=== PATIENT | male | born 1995 | race Caucasian/White ===

== ENCOUNTER 2022-05-24 14:25 | Emergency (ER) | payer MEDICAID ==
[~2022-05-24] VITALS: Ht 177.8 cm; Wt 95.5 kg
[2022-05-24 15:02] LABS: BASOPHILS % (AUTO) 0.3 % (0-1); EOSINOPHILS % (AUTO) 0.2 % (0-6); HEMATOCRIT 43.9 % (42.0-52.0); LYMPHOCYTES # (AUTO) 2.4 X10'3 (1.1-4.8); LYMPHOCYTES % (AUTO) 18.8 % (21-51); MEAN CORPUSCULAR HEMOGLOBIN 27.8 PG (27.0-31.0); MEAN CORPUSCULAR HGB CONC 34.2 g/dL (33.0-36.5); MEAN CORPUSCULAR VOLUME 81.1 FL (78-98); MEAN PLATELET VOLUME 9.5 FL (7.4-10.4); MONOCYTES # (AUTO) 0.8 X10'3 (0-0.9); MONOCYTES % (AUTO) 6.1 % (2-12); NEUTROPHILS # (AUTO) 9.4 X10'3 (1.8-7.7); NEUTROPHILS % (AUTO) 74.6 % (42-75); PLATELET COUNT 269 X10'3 (140-440); RED BLOOD COUNT 5.41 X10'6 (4.70-6.10); RED CELL DISTRIBUTION WIDTH 13.5 % (11.5-14.5); WHITE BLOOD COUNT 12.6 X10'3 (4.5-11.0)
[2022-05-24 15:21] LABS: ALANINE AMINOTRANSFERASE 56 U/L (12-78); ALBUMIN 4.4 G/DL (3.4-5.0); ALKALINE PHOSPHATASE 77 IU/L (46-116); ANION GAP 15 (8-16); ASPARTATE AMINO TRANSFERASE 35 U/L (10-37); BILIRUBIN,TOTAL 1.1 MG/DL (0.1-1.0); BLOOD UREA NITROGEN 14 MG/DL (7-18); BUN/CREATININE RATIO 12.5 (5.4-32.0); CALCIUM 9.6 MG/DL (8.5-10.1); CHLORIDE 99 MMOL/L (99-107); CREATININE 1.12 MG/DL (0.60-1.10); GLUCOSE 120 MG/DL (70-104); MAGNESIUM 2.1 MG/DL (1.5-2.4); SODIUM 136 MMOL/L (135-145); TOTAL CARBON DIOXIDE 22.3 MMOL/L (24-32); TOTAL PROTEIN 8.8 G/DL (6.4-8.2); eGFR 78 ML/MIN
[2022-05-24 15:22] LABS: POTASSIUM 2.9 MMOL/L (3.5-5.1)
[2022-05-24] MEDS: albuterol 2.5 MG/3 ML nebule NEB ONE (16:27)
[2022-05-24] MEDS: dexamethasone sod phosphate 10mg/ml inj PO STA ×2 (17:00→17:48)
[2022-05-24] MEDS ORDERED: AZIT500T9 PO (17:14)
[2022-05-24] MEDS ORDERED: ALBU8HFA PO (17:14)
[2022-05-24] MEDS: POTASSIUM BICARB 20meq eff tab 20 MEQ TABLET.EFF PO STA (17:48)
[2022-05-24] MEDS: ondansetron 4mg rapidly disintigrating tab PO ONE (17:48)
[2022-05-24] MEDS: azithromycin 250mg tablet PO ONE (17:48)
[2022-05-24 17:50] VITALS: BP 144/96
== END 2022-05-24 18:05 | disposition home or self-care (01) ==
LOC: ER 14:27
DX: R05.9 Cough, unspecified (principal); R06.89 Other abnormalities of breathing; Z88.1 Allergy status to other antibiotic agents
CPT/HCPCS: 36415; 71046; 80053; 83735; 83880; 84484; 85025; 93005; 94640; 99285; J1100; 99283; J3490